=== PATIENT | female | born 1965 | race American Indian/Alaskan Native ===

== ENCOUNTER 2018-09-27 12:21 | Emergency (ER) | payer SELFPAY ==
--- NOTE | 2018-09-27 12:31 | Emergency Department Report ---
Chief Complaint: Wound/Laceration Stated Complaint: LIP PEIRCING REMOVED - HPI History of Present Illness: here to get her lip piercing removed mse completed MSE screening note: Focused history and physical exam performed. Due to findings the following was ordered: ED Disposition for MSE Condition: Stable
[2018-09-27 12:32] VITALS: BP 136/82
--- NOTE | 2018-09-27 13:06 | Emergency Department Report ---
Chief Complaint: Wound/Laceration Stated Complaint: LIP PEIRCING REMOVED Time Seen by Provider: 09/27/18 12:31 - HPI History of Present Illness: Ms. Cowart is 53 yo female who presents to ER for lip piercing removal. She has new employment which requires the piercing to be removed. The lower lip piercing has been in place for 2-3 years. The inner portion of the jewelry is now embedded in the lip. Ms. Cowart does not currently have an emergency medical condition which needs further treatment and evaluation. I explained that her condition would be best served by a specialist. I referred her to general surgeon for definitive care. Medical screening exam performed. - Exam Vital Signs: Vital Signs 09/27/18 12:32 Temperature 98.5 F Pulse Rate 83 Respiratory 16 Rate Blood Pressure 136/82 [Right] O2 Sat by Pulse 100 Oximetry MSE screening note: Focused history and physical exam performed. Due to findings the following was ordered: ED Disposition for MSE Clinical Impression: Encounter for medical screening examination, History of body piercing Disposition: MED SCREENING EXAM-LEFT Is pt being admited?: No Does the pt Need Aspirin: No Condition: Stable Additional Instructions: Please contact surgeon for appointment. You need to have your piercing removed by a specialist. Referrals: SUMIT FUCHS DO [Staff Physician] - 3-5 Days
== END 2018-09-27 13:09 | disposition left against medical advice (07) ==
LOC: ED 12:21
DX: Z13.9 Encounter for screening, unspecified (principal); Z98.890 Other specified postprocedural states
CPT/HCPCS: 99281